=== PATIENT | male | born 2000 | race Caucasian/White ===

== ENCOUNTER 2022-05-06 15:34 | Emergency (ER) | payer OTHER ==
[~2022-05-06] VITALS: Ht 198.1 cm; Wt 88.6 kg
[2022-05-06 15:43] VITALS: TEMP 97.9
[2022-05-06 18:30] VITALS: BP 133/69; PULSE 76
== END 2022-05-06 18:31 | disposition home or self-care (01) ==
LOC: COL.ER 15:34
DX: M70.51 Other bursitis of knee, right knee (principal)